=== PATIENT | female | born 1980 | race Two or more races ===

== ENCOUNTER 2024-07-08 09:08 | Inpatient (IN) | payer OTHER ==
[2024-07-08] VITALS (17 sets, daily range): BP systolic 112–135; BP diastolic 62–80; PULSE 67–93; RESP 17–24; TEMP 97.5–99.2; O2SAT 97–99
[~2024-07-08] VITALS: Ht 157.5 cm; Wt 66.6 kg
[2024-07-08 09:38] LABS: Urine Bacteria None Seen /hpf (None Seen)
[2024-07-08 09:50] LABS: Potassium 3.6 mmol/L (3.5-5.1); Sodium 140 mmol/L (136-145)
[2024-07-08 09:51] LABS: Anion Gap 7 (5-15); Carbon Dioxide 23 mmol/L (20-31)
[2024-07-08 09:52] LABS: Calcium 9.8 mg/dL (8.7-10.4)
[2024-07-08 09:57] LABS: BUN/Creatinine Ratio 13.2 (10.0-20.0); Blood Urea Nitrogen 10 mg/dL (9-23); Eosinophils # (auto) 0.3 10 ^3/uL (0-0.8); Lymphocytes # (auto) 1.5 10 ^3/uL (0.4-5.4); Monocytes # (auto) 0.3 10 ^3/uL (0-1.3); Monocytes % (auto) 7.4 % (0.0-12.0)
[2024-07-08 10:02] LABS: Basophils # (auto) 0.1 10 ^3/uL (0-0.2); Basophils % (auto) 1.5 % (0.0-2.0); Eosinophils % (auto) 6.2 % (0.0-7.0); Hematocrit 25.2 % (36.0-46.0); Mean Corpuscular Hemoglobin 13.6 pg (28.0-32.0); Mean Corpuscular Hgb Conc. 25.4 g/dL (32.0-36.0); Mean Corpuscular Volume 53.6 fL (80.0-100.0); Neutrophils # (auto) 2.4 10 ^3/uL (1.6-8.6); Neutrophils % (auto) 52.9 % (37.0-80.0); Nucleated Red Blood Cells % 0.2 %; Platelet Count (auto) 437 10^3/uL (140-450); Red Cell Distribution Width 24.4 % (11.8-14.3); White Blood Cell 4.5 10^3/uL (4.4-10.8)
[2024-07-08 10:04] LABS: Hemoglobin 6.4 g/dL (12.2-16.2)
[2024-07-08 10:07] LABS: Chloride 110 mmol/L (98-107); Glucose 118 mg/dL (74-106)
[2024-07-08 10:14] LABS: Urine Blood Negative /uL (Negative); Urine Clarity Clear (Clear); Urine Color Light-Yellow (Yellow); Urine Mucus FEW (None Seen); Urine Protein, UAD Negative (Negative); Urine Specific Gravity 1.019 (1.001-1.035); Urine Urobilinogen Normal (Negative); Urine WBC 1 /hpf (0 - 5)
--- NOTE | 2024-07-08 10:55 | ED.PDOC ---
History of Present Illness HPI Comments This is a 44-year-old female who comes in with chief complaint of dizziness and weakness over the past one year. The patient states that she saw her doctor last month and had blood drawn approximately one week ago. She states that she was called today and told that she may be anemic and she needs to come to the emergency department's for evaluation. The patient denies any heavy menstruation. The patient also denies any chest pain or fever. The patient was complaining of some shortness for breath upon ambulation. Chief Complaint: Abnormal LAB's Time Seen by MD: 10:11 Primary Care Provider: YOVANA Reviewed Notes: Nurses Notes, Medications, Allergies (No allergies to medications) Allergies: Coded Allergies: NO KNOWN ALLERGIES (Unverified , 07/08/24) Information Source: Patient Mode of Arrival: Ambulatory Severity: Moderate Timing: Months Duration: Since onset Prehospital treatment: None Associated signs and symptoms Generalized weakness with shortness for breath on ambulation and dizziness Past Medical History PAST MEDICAL HISTORY: Anemia Surgical History: BTL, MULTIM[employer]IA SPECIALIST History: No Pertinent MULTIM[employer]IA SPECIALIST History Family History Family History: Family hx of HTN Family History (Other): Chronic anemia Social History Smoker: Non-Smoker Alcohol: Denies ETOH Use Drugs: Denies Drug Use Lives In: Home Constitutional: reports: weakness; denies: chills, diaphoresis, fatigue, fever, malaise, sweats, others EENTM: denies: blurred vision, double vision, ear bleeding, ear discharge, ear drainage, ear pain, ear ringing, eye pain, eye redness, hearing loss, mouth pain, mouth swelling, nasal discharge, nose bleeding, nose congestion, nose pa in, photophobia, tearing, throat pain, throat swelling, voice changes, others Respiratory: reports: shortness of breath; denies: cough, hemoptysis, orthopnea, SOB at rest, SOB with excertion, stridor, wheezing, others Cardiovascular: denies: chest pain, dizzy spells, diaphoresis, Dyspnea on exertion, edema, irregular heart beat, left arm pain, lightheadedness, palpitations, PND, syncope, others Gastrointestinal: denies: abdomen distended, abdominal pain, blood streaked bowels, constipated, diarrhea, dysphagia, difficulty swallowing, hematemesis, m july, nausea, poor appetite, poor fluid intake, rectal bleeding, rectal pain, vomiting, others Genitourinary: denies: abnormal vagina bleeding, burning, dyspareunia, dysuria, flank pain, frequency, hematuria, incontinence, pain, , vagina discharge, urgency, others Neurological: reports: dizziness; denies: fainting, headache, left sided numbness, left sided weakness, numbness, paresthesia, pre-existing deficit, right sided numbness, right sided weakness, seizure, speech problems, tingling, tremors, weakness, others Musculoskeletal: denies: back pain, gout, joint pain, joint swelling, muscle pain, muscle stiffness, neck pain, others Integumetry: denies: bruises, change in color, change in hair/nails, dryness, laceration, lesions, lumps, rash, wounds, others Allergic/Immunocompromised: denies: Difficulty Healing, Frequent Infections, Hives, Itching, others Hematologic/Lymphatic: denies: anemia, blood clots, easy bleeding, easy bruising, swollen glands, others Endocrine: denies: excessive hunger, excessive sweating, excessive thirst, excessive urination, flushing, intolerance to cold, intolerance to heat, unexplained weight gain, unexplained weight loss, others Psychiatric: denies: anxiety, bipolar disorder, depression, hopeless, panic disorder, schizophrenia, sleepless, suicidal, others Physical Exam General Appearance: Moderate Distress HEENT: Pale Conjuntivae (L), Pale Conjuntivae (R), Pharynx Normal, TMs Normal Neck: Full Range of Motion, Non-Tender, Normal, Normal Inspection Respiratory: Chest Non-Tender, Lungs Clear, No Accessory Muscle Use, No Respiratory Distress, Normal Breath Sounds Cardiovascular: No Edema, No JVD, No Murmur, No Gallop, Normal Peripheral Pulses, Regular Rate/Rhythm Breast Exam: Deferred Gastrointestinal: No Organomegaly, Non Tender, No Pulsatile Mass, Normal Bowel Sounds, Soft Genitalia: Deferred Pelvic: Deferred Rectal: Deferred Extremities: No calf tenderness, Normal capillary refill, Normal inspection, Normal range of motion, Non-tender, No pedal edema Musculoskeletal : Apperance: Normal Neurologic: tubular splitting machine tender II-XII nml as Tested, Motor Weakness, Normal Affect, Normal Mood, No Sensory Deficits Cerebellar Function: Normal Reflexes: Normal Skin: Dry, Pallor, Warm Lymphatic: No Adenopathy Was a procedure done? Was a procedure done?: No Differential Dx Considerations may include: Anemia, electrolyte imbalance, generalized weakness X-Ray, Labs, Meds, VS Vital Signs Date Time Temp Pulse Resp B/P (MAP) Pulse Ox O2 Delivery O2 Flow Rate FiO2 07/08/24 12:06 98.6 81 18 121/79 98.6 07/08/24 10:23 89 17 97 Room Air* 0 21 07/08/24 10:23 89 17 118/70 (86) 97 07/08/24 09:20 98.9 99 18 151/78 (102) 100 Lab Test 07/08/24 09:28 07/08/24 09:20 Range/Units White Blood Count 4.5 4.4-10.8 10^3/uL Red Blood Count 4.70 4.0-5.20 10^6/uL Hemoglobin 6.4 *L 12.2-16.2 g/dL Hematocrit 25.2 L 36.0-46.0 % Mean Corpuscular Volume 53.6 L 80.0-100.0 fL Mean Corpuscular Hemoglobin 13.6 L 28.0-32.0 pg Mean Corpuscular Hemoglobin Concent 25.4 L 32.0-36.0 g/dL Red Cell Distribution Width 24.4 H 11.8-14.3 % Platelet Count 437 140-450 10^3/uL Mean Platelet Volume 8.2 6.9-10.8 fL Neutrophils (%) (Auto) 52.9 37.0-80.0 % Lymphocytes (%) (Auto) 32.0 10.0-50.0 % Monocytes (%) (Auto) 7.4 0.0-12.0 % Eosinophils (%) (Auto) 6.2 0.0-7.0 % Basophils (%) (Auto) 1.5 0.0-2.0 % Neutrophils # (Auto) 2.4 1.6-8.6 10 ^3/uL Lymphocytes # (Auto) 1.5 0.4-5.4 10 ^3/uL Monocytes # (Auto) 0.3 0-1.3 10 ^3/uL Eosinophils # (Auto) 0.3 0-0.8 10 ^3/uL Basophils # (Auto) 0.1 0-0.2 10 ^3/uL Nucleated Red Blood Cells 0.2 % Platelet Estimate Adequate Hypochromasia (manual) Marked Anisocytosis (manual) Moderate Microcytosis Marked Tear Drop Cells Few Ovalocytes Few Sodium Level 140 136-145 mmol/L Potassium Level 3.6 3.5-5.1 mmol/L Chloride Level 110 H 98-107 mmol/L Carbon Dioxide Level 23 20-31 mmol/L Anion Gap 7 5-15 Blood Urea Nitrogen 10 9-23 mg/dL Creatinine 0.76 0.550-1.02 mg/dL Glomerular Filtration Rate Calc 100 >90 mL/min BUN/Creatinine Ratio 13.2 10.0-20.0 Serum Glucose 118 H 74-106 mg/dL Calcium Level 9.8 8.7-10.4 mg/dL Urine Color Light-yellow Yellow Urine Clarity Clear Clear Urine pH 7.0 5.0-9.0 Urine Specific [place] 1.019 1.001-1.035 Urine Protein Negative Negative Urine Ketones Negative Negative Urine Blood Negative Negative /uL Urine Nitrite Negative Negative Urine Bilirubin Negative Negative Urine Urobilinogen Normal Negative mg/dL Urine Leukocyte Esterase Negative Negative /uL Urine RBC 1 0 - 4 /hpf Urine WBC 1 0 - 5 /hpf Urine Squamous Epithelial Cells Few <5 /hpf Urine Bacteria None seen None Seen /hpf Urine Mucus Few None Seen Urine Glucose Normal Normal mg/dL The patient's CBC shows anemia with a hemoglobin of 6.4 and hematocrit of 25.2 The platelets are within normal limits The chemistry panel is within normal limits The urine test is negative We are typed and screen the patient. The patient will be transfused with 2 units of packed red blood cells. At this time, the patient was being admitted to the hospitalist Discussed the findings with the patient and she still remains symptomatic Images Reviewed?: Images reviewed and evaluated by me Time of 1ST Reevaluation: 10:55 Reevaluation 1ST: Unchanged Patient Education/Counseling: Diagnosis, Treatment, Prognosis Family Education/Counseling: No Family Present Departure 1 Departure Time of Disposition: 12:42 Impression: Primary Impression: Near syncope Additional Impressions: Severe anemia Generalized weakness Disposition: 09 ADMITTED INPATIENT Admit to: Med Surg Condition: Fair Critical Care Note Critical Care Time?: No Stability Stability form required: Yes Unstable for transfer: ED Physician Assesment (Clinical assesment) Heart Score Heart Score: Heart Score Response (Comments) Value History N/A 0 EKG N/A 0 Age N/A 0 Risk Factors N/A 0 Troponin N/A 0 Total 0 CHIRAG LANDIN MD Jul 08, 2024 10:55
[2024-07-08 11:41] LABS: Platelet Estimate Adequate
[2024-07-08 11:42] LABS: Anisocytosis Moderate; Hypochromia Marked; Ovalocytes FEW; Tear Drop Cells FEW
[2024-07-08] MEDS ORDERED: DOCUSATE SOD 100 MG CAP PO PRN (13:45)
[2024-07-08] MEDS ORDERED: ONDANSETRON HCL 4 MG/2 ML VIAL IV PRN (13:45)
[2024-07-08] MEDS ORDERED: HYDROcodone-ACET 5/325MG TAB PO PRN (13:45)
--- NOTE | 2024-07-08 13:58 | DVHHP2 ---
History of Present Illness Reason for Visit: Abnormal Labs History of Present Illness Oriana Looney is a 44-year-old female with no significant past medical history who was sent to the ER by her primary care provider for severe anemia. Patient states that for the past year she has been feeling more tired and was getting short of breath when walking up her stairs. She states she went to her primary care provider about 1 month ago for a routine check up, completed her labs last week, and was then called by her primary and told to go to the ER because she may require a blood transfusion. Patient denies any S/S of GI bleed. Denies any vomiting, diarrhea, dark stool, or blood in stool. States her menstrual cycle is normal lasting 3-4 days. On assessment patient was receiving her first unit of PRBC. Past Surgical History: (x 3), Tubal Ligation Family History: None Smoke: No ALCOHOL: none Drugs: None Lives: with Family Domestic Violence: Neg Review of Systems Constitutional: Yes: Malaise; No: Fever, Chills, Sweats, Weakness, Other Eyes: No: Pain, Vision change, Conjunctivae inflammation, Eyelid inflammation, Other, Redness ENT: No: Ear pain, Ear discharge, Nose pain, Nose discharge, Nose congestion, M outh pain, Mouth swelling, Throat pain, Throat swelling, Other Respiratory: SOB with excertion; No: Cough, Dry, Shortness of breath, Wheezing, Hemoptysis, Pleuritic Pain, Sputum, Wheezing, Other Cardiovascular: No: Chest Pain, Palpitations, Orthopnea, Paroxysmal Noc. Dyspnea, Edema, Lt Headedness, Other Gastrointestinal: No: Nausea, Vomiting, Abdominal Pain, Diarrhea, Constipation, Melena, Hematochezia, Other Genitourinary: No Dysuria, No Frequency, No Incontinence, No Hematuria, No Retention, No Other Musculoskeletal: No: other, neck pain, shoulder pain, arm pain, back pain, hand pain, leg pain, foot pain Skin: No: Rash, Lesions, Jaundice, Bruising, Other Neurological: No: Weakness, Numbness, Incoordination, Change in speech, Confu tito, Seizures, Other Allergies: Coded Allergies: NO KNOWN ALLERGIES (Unverified , 07/08/24) Exam Vital Signs Vital Signs Date Time Temp Pulse Resp B/P (MAP) Pulse Ox O2 Delivery O2 Flow Rate FiO2 12/18/24 13:00 98.6 83 19 134/77 98.6 07/08/24 12:00 99 07/08/24 10:23 Room Air* 0 21 General Appearance: Alert, Oriented X3, Cooperative, mild distress HEENT: Atraumatic, PERRLA Respiratory: Clear to auscultation, Normal air movement Cardiovascular: Regular rate, Normal S1, Normal S2, No murmurs Abdominal: Normal bowel sounds, Soft, No tenderness Extremities: No clubbing, No cyanosis, No edema, Normal pulses Skin: No rashes, No breakdown, No significant lesion Neuro: Normal gait, Normal speech, Strength at 5/5 X4 ext Psych/Mental Status: Mental status NL, Mood NL Labs/Xrays Labs Test 07/08/24 09:28 07/08/24 09:20 Range/Units White Blood Count 4.5 4.4-10.8 10^3/uL Red Blood Count 4.70 4.0-5.20 10^6/uL Hemoglobin 6.4 *L 12.2-16.2 g/dL Hematocrit 25.2 L 36.0-46.0 % Mean Corpuscular Volume 53.6 L 80.0-100.0 fL Mean Corpuscular Hemoglobin 13.6 L 28.0-32.0 pg Mean Corpuscular Hemoglobin Concent 25.4 L 32.0-36.0 g/dL Red Cell Distribution Width 24.4 H 11.8-14.3 % Platelet Count 437 140-450 10^3/uL Mean Platelet Volume 8.2 6.9-10.8 fL Neutrophils (%) (Auto) 52.9 37.0-80.0 % Lymphocytes (%) (Auto) 32.0 10.0-50.0 % Monocytes (%) (Auto) 7.4 0.0-12.0 % Eosinophils (%) (Auto) 6.2 0.0-7.0 % Basophils (%) (Auto) 1.5 0.0-2.0 % Neutrophils # (Auto) 2.4 1.6-8.6 10 ^3/uL Lymphocytes # (Auto) 1.5 0.4-5.4 10 ^3/uL Monocytes # (Auto) 0.3 0-1.3 10 ^3/uL Eosinophils # (Auto) 0.3 0-0.8 10 ^3/uL Basophils # (Auto) 0.1 0-0.2 10 ^3/uL Nucleated Red Blood Cells 0.2 % Platelet Estimate Adequate Hypochromasia (manual) Marked Anisocytosis (manual) Moderate Microcytosis Marked Tear Drop Cells Few Ovalocytes Few Sodium Level 140 136-145 mmol/L Potassium Level 3.6 3.5-5.1 mmol/L Chloride Level 110 H 98-107 mmol/L Carbon Dioxide Level 23 20-31 mmol/L Anion Gap 7 5-15 Blood Urea Nitrogen 10 9-23 mg/dL Creatinine 0.76 0.550-1.02 mg/dL Glomerular Filtration Rate Calc 100 >90 mL/min BUN/Creatinine Ratio 13.2 10.0-20.0 Serum Glucose 118 H 74-106 mg/dL Calcium Level 9.8 8.7-10.4 mg/dL Urine Color Light-yellow Yellow Urine Clarity Clear Clear Urine pH 7.0 5.0-9.0 Urine Specific [place] 1.019 1.001-1.035 Urine Protein Negative Negative Urine Ketones Negative Negative Urine Blood Negative Negative /uL Urine Nitrite Negative Negative Urine Bilirubin Negative Negative Urine Urobilinogen Normal Negative mg/dL Urine Leukocyte Esterase Negative Negative /uL Urine RBC 1 0 - 4 /hpf Urine WBC 1 0 - 5 /hpf Urine Squamous Epithelial Cells Few <5 /hpf Urine Bacteria None seen None Seen /hpf Urine Mucus Few None Seen Urine Glucose Normal Normal mg/dL Assessment/Plan Assessment/Plan Assessment: Severe anemia, Possible Thalassemia, Possible iron deficiency anemia, Plan: Admit to Med-Surg, Transfuse 2 units PRBC, Saez stain, Manage/Monitor Hbg closely, Consider hematology consult, Plan discussed with: Patient Date of Service: Jul 08, 2024 Billing Provider: JORGE GRAF Common Visit Codes: [id number] INP/OBS CARE (MOD) JORGE GRAF Jul 08, 2024 13:58
[2024-07-08] MEDS: SODIUM CHLOR 0.9% PF (SALINE LOCK) 10ML VIAL/SYR IV SCH (14:02)
[2024-07-08 19:03] LABS: Hemoglobin 9.5 g/dL (12.2-16.2)
[2024-07-08 19:05] LABS: Hematocrit 31.6 % (36.0-46.0)
[2024-07-08] MEDS: ACETAMINOPHEN 325 MG TAB PO PRN (23:15)
[2024-07-09] VITALS (8 sets, daily range): BP systolic 115–133; BP diastolic 60–72; PULSE 66–83; RESP 14–20; TEMP 97.4–98.3; O2SAT 91–99
[2024-07-09 06:52] LABS: Alanine Aminotransferase 16 U/L (7-40); Albumin 4.1 g/dL (3.2-4.8); Alkaline Phosphatase 93 U/L (46-116); Anion Gap 7 (5-15); Aspartate Aminotransferase 16 U/L (13-40); BUN/Creatinine Ratio 15.5 (10.0-20.0); Blood Urea Nitrogen 9 mg/dL (9-23); Calcium 9.5 mg/dL (8.7-10.4); Carbon Dioxide 22 mmol/L (20-31); Glucose 97 mg/dL (74-106); Sodium 140 mmol/L (136-145)
[2024-07-09 06:53] LABS: Bilirubin, Total 1.2 mg/dL (0.2-1.0); Chloride 111 mmol/L (98-107)
[2024-07-09 07:07] LABS: Basophils # (auto) 0.1 10 ^3/uL (0-0.2); Eosinophils # (auto) 0.4 10 ^3/uL (0-0.8); Hemoglobin 9.2 g/dL (12.2-16.2); Monocytes # (auto) 0.5 10 ^3/uL (0-1.3); White Blood Cell 5.5 10^3/uL (4.4-10.8)
[2024-07-09 07:10] LABS: Basophils % (auto) 1.2 % (0.0-2.0); Eosinophils % (auto) 8.1 % (0.0-7.0); Hematocrit 29.7 % (36.0-46.0); Lymphocytes # (auto) 1.5 10 ^3/uL (0.4-5.4); Lymphocytes % (auto) 27.4 % (10.0-50.0); Mean Corpuscular Hemoglobin 19.4 pg (28.0-32.0); Mean Corpuscular Hgb Conc. 31.1 g/dL (32.0-36.0); Mean Corpuscular Volume 62.4 fL (80.0-100.0); Monocytes % (auto) 9.2 % (0.0-12.0); Neutrophils % (auto) 54.1 % (37.0-80.0); Nucleated Red Blood Cells % 0.2 %; Platelet Count (auto) 345 10^3/uL (140-450); Red Blood Cells 4.76 10^6/uL (4.0-5.20)
[2024-07-09 07:12] LABS: Red Cell Distribution Width 35.4 % (11.8-14.3)
[2024-07-09 07:43] LABS: % Iron Saturation 8.6 % (15-50)
[2024-07-09 07:47] LABS: Ferritin 5.5 ng/mL (10-291); Folate (Folic Acid) 13.86 ng/mL (>5.38)
[2024-07-09 08:21] LABS: Anisocytosis Moderate; Hypochromia Moderate
[2024-07-09 08:22] LABS: Ovalocytes FEW; Platelet Estimate Adequate; Tear Drop Cells FEW
--- NOTE | 2024-07-09 11:46 | DVH ---
INDICATION: anemia TECHNIQUE: Multiple real-time grayscale transabdominal sonographic images along with color and duplex Doppler of the uterus and ovaries were obtained. COMPARISON: None FINDINGS: The uterus measures 8.5 x 5.2 x 4.7 cm. The endometrial stripe measures 0.6 cm. The right ovary measures 3.6 x 1.8 x 2.0 cm. The left ovary measures 4.2 x 1.8 x 2.6 cm. Subsequent color and duplex Doppler interrogation of the ovaries demonstrated symmetric vascular flow to both ovaries, though this does not exclude the possibility of torsion due to the dual blood suppl y. IMPRESSION: 1. Grossly unremarkable pelvic ultrasound.
[2024-07-09] MEDS: FERROUS SULFATE 325mg EC TAB PO ONE (12:36)
--- NOTE | 2024-07-09 13:03 | DVHPNRES ---
Progress Note Date Seen: Jul 09, 2024 Resident Creating Document: NILA ESCALONA RESIDENT Medical Necessity Reason Pt with a Central, PICC or Fol: No Subjective Review of Systems patent is 44 years old female with no significant past medical history came with the references of the primary care physician for blood transfusion. As per patient patient went to see her doctor yesterday for lab reports and Ask the patient to go to the ER for blood transfusion. Patient reported having feeling tired and fatigue that has been going on for last 1 year. Patient also reports some palpitation and shortness of breaths especially when she tries to go off his chair. Patient also reported having dark stool six-month before. Patient denied any bleeding, fever, night sweat or weight loss or loss of appetite, acute joint pain or swelling constipation or diarrhea, change in vision. Patient reported that her family has a history of anemia due to heavy menstrual or menorrhagia. Initial lab workup revealed hemoglobin 6.4 and after 2 units of blood transfusion hemoglobin was 9.2. Other lab revealed hematocrit 25.2 at the beginning, MCV 53.6, MCH 13.6, MCHC 25.4, RDW 24.4, hypochromasia Zeeshan, anisocytosis moderate, microcytosis Zeeshan. PMH- No significant past medical history PSH- 3 C section, bilateral tubal ligation Allergy- NKDA Personal History/ Social History- patient did not smoking/alcoholism/ drug abuse, lives at home with the and other kids. Patient was seen today at the bedside. Patient reports Feeling tiredhortness of breath or cough or palpitation Respiratory- denies cough or short of breath or wheezing Gastrointestinal- denies any rectal bleeding, nausea or vomiting Musculoskeletal-denies acute joint swelling or tenderness or redness Neurological- denies acute dysarthria, dysphagia, change in vision Psychiatry- denies depression or SI or HI Skin- denies acute rash or purpura Patient was seen today for clinical evaluation. Labs and chart reviewed. Patient status post 2 units blood transfusion. Tolerated well. Ordered ultrasound of the pelvis for further evaluation and care which revealed-Grossly unremarkable pelvic ultrasound. Patient was found to have iron-deficiency with low iron and ferritin level. Ordered ferrous sulfate 320 mg p.o. daily. Fecal occult blood test negative. Objective vital signs Vital Sign Date Time Temp Pulse Resp B/P (MAP) Pulse Ox O2 Delivery O2 Flow Rate FiO2 07/09/24 09:00 97.4 69 16 122/68 (86) 98 97.4 07/09/24 08:00 Room Air* 0 21 Total Intake and Output 07/08/24 07/08/24 07/09/24 15:00 23:00 07:00 Intake Total 1200 ml 200 ml Output Total 0 ml Balance 1200 ml 200 ml medications Current Medications Medications Dose Ordered Sig/Dawit Route Start Time Stop Time Status Last Admin Dose Admin Sodium Chloride 10 ml Q8HR IV 07/08/24 14:00 07/09/24 05:32 10 ML Acetaminophen/ Hydrocodone Bitart 1 tab Q4HP PRN PO 07/08/24 13:45 Ondansetron HCl 4 mg Q4HP PRN IV 07/08/24 13:45 Docusate Sodium 100 mg BIDPRN PRN PO 07/08/24 13:45 Acetaminophen 650 mg Q6HP PRN PO 07/08/24 13:45 07/08/24 23:15 650 MG Ferrous Sulfate 325 mg BIDWM PO 07/09/24 18:00 Famotidine 20 mg Q12HR PO 07/09/24 22:00 Examination General examination- awake, alert, oriented HEENT- PEERLA, no acute nasal discharge Cardiovascular- S1-S2 audible, rate and rhythm regular, no murmur Respiratory- CTAB, no wheeze or rhonchi Gastrointestinal-nontender, bowel sound+. Nondistended Musculoskeletal-no acute joint swelling or tenderness or redness# Lower extremity- no leg edema Neurological- cranial nerves intact, no acute dysarthria or dysphagia Psychiatry- denies depression or SI or HI Skin- no acute rash or purpura laboratory and microbiology Laboratory Tests 07/09/24 05:46 Test 07/09/24 05:46 Range/Units Serum Glucose 97 74-106 mg/dL Problem List/Assessment/Plan Problem List/Assessment/Plan # severe anemia likely due to microcytic hypochromic anemia - status post 2 units blood transfusion - ordered iron panel, ferritin, stool occult blood test, TSH, vitamin B12, folic acid level for further evaluation and care # tiredness and fatigue likely due to severe anemia Goals of care/advance care planning; FULL CODE; discussed with the patient >15 minutes PUD prophylaxis: famotidine DVT prophylaxis: patient ambulating Plan discussed with Dr. Peña, nursing staff, patient Total time spent on patient evaluation, chart review, assessment and plan, discussion discussion >30 minutes Plan discussed with: Patient Plan discussed with: Patient, Other (RN) My Orders My Orders Orders - NILA ESCALONA Procedure Category Date Status Time Urine ED NURSING 07/09/24 Transmitted Ferrous Sulfate Tablet PHA 07/09/24 In Process 18:00 Famotidine Tablet PHA 07/09/24 In Process (Pepcid Tablet) 22:00 Pelvic US 07/09/24 Resulted 10:05 CC Plasma Assessment Blood Product Administration S: [id number] Date of Service: Jul 09, 2024 Billing Provider: RUSLAN PEÑA MD Common Visit Codes: [id number] INP/OBS CARE(HIGH) Secondary Visit Codes: [id number] CARE PLAN 30 MINUTES NILA ESCALONA Jul 09, 2024 13:03 RUSLAN PEÑA MD Jul 09, 2024 20:34
[2024-07-09] MEDS: FERROUS SULFATE 325mg EC TAB PO SCH (17:41)
[2024-07-09] MEDS: FAMOTIDINE 20 MG TAB PO SCH (21:15)
[2024-07-10 01:00] VITALS: BP 126/66; PULSE 58; RESP 18; TEMP 98; O2SAT 100
[2024-07-10 05:00] VITALS: BP 124/73; PULSE 62; RESP 18; TEMP 98; O2SAT 98
[2024-07-10 06:43] LABS: Basophils # (auto) 0 10 ^3/uL (0-0.2); Eosinophils # (auto) 0.4 10 ^3/uL (0-0.8); Hemoglobin 9.7 g/dL (12.2-16.2); Monocytes # (auto) 0.5 10 ^3/uL (0-1.3)
[2024-07-10 06:47] LABS: Basophils % (auto) 0.8 % (0.0-2.0); Eosinophils % (auto) 7.2 % (0.0-7.0); Hematocrit 31.9 % (36.0-46.0); Lymphocytes # (auto) 1.8 10 ^3/uL (0.4-5.4); Lymphocytes % (auto) 31.4 % (10.0-50.0); Mean Corpuscular Hemoglobin 18.9 pg (28.0-32.0); Mean Corpuscular Hgb Conc. 30.4 g/dL (32.0-36.0); Mean Corpuscular Volume 62.1 fL (80.0-100.0); Monocytes % (auto) 8.8 % (0.0-12.0); Neutrophils % (auto) 51.8 % (37.0-80.0); Nucleated Red Blood Cells % 0.1 %; Platelet Count (auto) 357 10^3/uL (140-450); Red Blood Cells 5.13 10^6/uL (4.0-5.20); Red Cell Distribution Width 36.7 % (11.8-14.3); White Blood Cell 5.8 10^3/uL (4.4-10.8)
[2024-07-10 06:50] LABS: Calcium 9.8 mg/dL (8.7-10.4); Potassium 4.1 mmol/L (3.5-5.1); Sodium 139 mmol/L (136-145)
[2024-07-10 06:51] LABS: Anion Gap 7 (5-15); Carbon Dioxide 24 mmol/L (20-31)
[2024-07-10 06:54] LABS: Chloride 108 mmol/L (98-107)
[2024-07-10 06:57] LABS: Blood Urea Nitrogen 14 mg/dL (9-23); Glucose 104 mg/dL (74-106)
[2024-07-10 08:00] VITALS: RESP 16; O2SAT 98
[2024-07-10 10:05] VITALS: BP 126/72; PULSE 74; RESP 16; TEMP 97.6; O2SAT 100
[2024-07-10 10:51] VITALS: BP 126/72; PULSE 74; RESP 16; TEMP 97.6; O2SAT 100
[2024-07-10] MEDS ORDERED: FER325T PO (11:39)
--- NOTE | 2024-07-10 12:00 | DVHDSRES ---
Discharge Summary Date of Admission Resident Creating Document: NILA ESCALONA RESIDENT Jul 08, 2024 at 13:44 Date of Discharge: Jul 10, 2024 Admitting Diagnosis Severe anemia Labs/Diagnostic Data: Laboratory Results Test 07/10/24 05:12 07/09/24 11:00 07/09/24 05:46 07/08/24 09:20 White Blood Count 5.8 10^3/uL (4.4-10.8) Red Blood Count 5.13 10^6/uL (4.0-5.20) Hemoglobin 9.7 g/dL (12.2-16.2) Hematocrit 31.9 % (36.0-46.0) Mean Corpuscular Volume 62.1 fL (80.0-100.0) Mean Corpuscular Hemoglobin 18.9 pg (28.0-32.0) Mean Corpuscular Hemoglobin Concent 30.4 g/dL (32.0-36.0) Red Cell Distribution Width 36.7 % (11.8-14.3) Platelet Count 357 10^3/uL (140-450) Mean Platelet Volume 8.3 fL (6.9-10.8) Neutrophils (%) (Auto) 51.8 % (37.0-80.0) Lymphocytes (%) (Auto) 31.4 % (10.0-50.0) Monocytes (%) (Auto) 8.8 % (0.0-12.0) Eosinophils (%) (Auto) 7.2 % (0.0-7.0) Basophils (%) (Auto) 0.8 % (0.0-2.0) Neutrophils # (Auto) 3.0 10 ^3/uL (1.6-8.6) Lymphocytes # (Auto) 1.8 10 ^3/uL (0.4-5.4) Monocytes # (Auto) 0.5 10 ^3/uL (0-1.3) Eosinophils # (Auto) 0.4 10 ^3/uL (0-0.8) Basophils # (Auto) 0 10 ^3/uL (0-0.2) Nucleated Red Blood Cells 0.1 % Sodium Level 139 mmol/L (136-145) Potassium Level 4.1 mmol/L (3.5-5.1) Chloride Level 108 mmol/L (98-107) Carbon Dioxide Level 24 mmol/L (20-31) Anion Gap 7 (5-15) Blood Urea Nitrogen 14 mg/dL (9-23) Creatinine 0.61 mg/dL (0.550-1.02) Glomerular Filtration Rate Calc 114 mL/min (>90) BUN/Creatinine Ratio 23.0 (10.0-20.0) Serum Glucose 104 mg/dL (74-106) Calcium Level 9.8 mg/dL (8.7-10.4) Stool Occult Blood Negative (Negative) Stool Occult Blood Sample #3 (Negative) Platelet Estimate Adequate Hypochromasia (manual) Moderate Anisocytosis (manual) Moderate Microcytosis Moderate Tear Drop Cells Few Ovalocytes Few Schistocytes Few Hemoglobin A1c 5.2 % A1C (<5.7) Magnesium Level 2.2 mg/dL (1.6-2.6) Iron Level 33 ug/dL (50-170) Total Iron Binding Capacity 385 ug/dL (250-425) Percent Iron Saturation 8.6 % (15-50) Ferritin 5.5 ng/mL (10-291) Total Bilirubin 1.2 mg/dL (0.2-1.0) Aspartate Amino Transferase (AST) 16 U/L (13-40) Alanine Aminotransferase (ALT) 16 U/L (7-40) Alkaline Phosphatase 93 U/L (46-116) Total Protein 7.0 g/dL (5.7-8.2) Albumin 4.1 g/dL (3.2-4.8) Vitamin B12 Level 350 pg/mL (211-911) Folic Acid 13.86 ng/mL (>5.38) Thyroid Stimulating Hormone (TSH) 1.19 uIU/mL (0.55-4.78) Urine Color Light-yellow (Yellow) Urine Clarity Clear (Clear) Urine pH 7.0 (5.0-9.0) Urine Specific [place] 1.019 (1.001-1.035) Urine Protein Negative (Negative) Urine Ketones Negative (Negative) Urine Blood Negative /uL (Negative) Urine Nitrite Negative (Negative) Urine Bilirubin Negative (Negative) Urine Urobilinogen Normal mg/dL (Negative) Urine Leukocyte Esterase Negative /uL (Negative) Urine RBC 1 /hpf (0 - 4) Urine WBC 1 /hpf (0 - 5) Urine Squamous Epithelial Cells Few /hpf (<5) Urine Bacteria None seen /hpf (None Seen) Urine Mucus Few (None Seen) Urine Glucose Normal mg/dL (Normal) Other Laboratory Tests 07/10/24 05:12 Brief Hx & Hospital Course: patent is 44 years old female with no significant past medical history came with the references of the primary care physician for blood transfusion. As per patient patient went to see her doctor yesterday for lab reports and Ask the patient to go to the ER for blood transfusion. Patient reported having feeling tired and fatigue that has been going on for last 1 year. Patient also reports some palpitation and shortness of breaths especially when she tries to go off his chair. Patient also reported having dark stool six-month before. Patient denied any bleeding, fever, night sweat or weight loss or loss of appetite, acute joint pain or swelling constipation or diarrhea, change in vision. Patient reported that her family has a history of anemia due to heavy menstrual or menorrhagia. Initial lab workup revealed hemoglobin 6.4 and after 2 units of blood transfusion hemoglobin was 9.2. Other lab revealed hematocrit 25.2 at the beginning, MCV 53.6, MCH 13.6, MCHC 25.4, RDW 24.4, hypochromasia Zeeshan, anisocytosis moderate, microcytosis Zeeshan. During hospitalization and had 2 units blood transfusion. Tolerated well. Ordered ultrasound of the pelvis for further evaluation and care which revealed- Grossly unremarkable pelvic ultrasound. Patient was found to have iron- deficiency with low iron and ferritin level. Stool occult breast tested negative. Patient is hemodynamically stable. Patient is being discharged home with a ferrous sulfate 325 mg p.o. daily. Patient was advised to follow up with the primary care physician for further evaluation and care. Patient's hemoglobin is stable on discharge hemoglobin 9.7. Patient's med was sent to the pharmacy electronically. PMH- No significant past medical history PSH- 3 C section, bilateral tubal ligation Allergy- NKDA Personal History/ Social History- patient did not smoking/alcoholism/ drug abuse, lives at home with the and other kids. Patient was seen today at the bedside. Patient reports Feeling tiredhortness of breath or cough or palpitation Respiratory- denies cough or short of breath or wheezing Gastrointestinal- denies any rectal bleeding, nausea or vomiting Musculoskeletal-denies acute joint swelling or tenderness or redness Neurological- denies acute dysarthria, dysphagia, change in vision Psychiatry- denies depression or SI or HI Skin- denies acute rash or purpura General examination- awake, alert, oriented HEENT- PEERLA, no acute nasal discharge Cardiovascular- S1-S2 audible, rate and rhythm regular, no murmur Respiratory- CTAB, no wheeze or rhonchi Gastrointestinal-nontender, bowel sound+. Nondistended Musculoskeletal-no acute joint swelling or tenderness or redness# Lower extremity- no leg edema Neurological- cranial nerves intact, no acute dysarthria or dysphagia Psychiatry- denies depression or SI or HI Skin- no acute rash or purpura Operations or Procedures General examination- awake, alert, oriented HEENT- PEERLA, no acute nasal discharge Cardiovascular- S1-S2 audible, rate and rhythm regular, no murmur Respiratory- CTAB, no wheeze or rhonchi Gastrointestinal-nontender, bowel sound+. Nondistended Musculoskeletal-no acute joint swelling or tenderness or redness# Lower extremity- no leg edema Neurological- cranial nerves intact, no acute dysarthria or dysphagia Psychiatry- denies depression or SI or HI Skin- no acute rash or purpura Condition at Discharge: Stable Final Diagnosis/Problems List Severe anemia likely due iron-deficiency anemia with microcytic hypochromic anemia Tiredness and fatigue likely due to severe anemia Discharge Disposition: Home Discharge Instruct/Medications Diet: Regular Activity: No Restrictions, As Tolerated Follow Up/Referral: Please follow up with your primary care physician in 1 week Medications: Ferrous sulfate 325 mg p.o. daily Discharge Statement: "Patient was advised to return to the ER or call 911 if any headaches, dizziness, shortness of breath, chest pain, abdominal pain, bleeding, fevers, or worsening of medical condition. Patient was counseled about treatment plan, medications, possible side effects, patientverbalized understanding. All questions were answered to the best of my ability. This discharge took greater then 30 minutes in planning, reviewing documentation, counseling the patient, and discussing with other team members." ASSESSMENT ASSESSMENT Assessment Severe anemia likely due iron-deficiency anemia with microcytic hypochromic anemia Tiredness and fatigue likely due to severe anemia Date of Service: Jul 10, 2024 Billing Provider: RUSLAN MEJIA MD Common Visit Codes: 35376-AGJ/OBS DISCH DAY >30min NILA ESCALONA Jul 10, 2024 12:00 RUSLAN MEJIA MD Jul 10, 2024 22:49
== END 2024-07-10 11:40 | disposition home or self-care (01) | DRG 663 ==
LOC: ER 09:15 → OVERFLOW 13:44 → WEST WING 23:00
PROVIDERS: ADMIT Internal Medicine Geriatric Medicine; ATTEND Internal Medicine Geriatric Medicine
PROC: 30233N1 Transfusion of Nonautologous Red Blood Cells into Peripheral Vein, Percutaneous Approach (ICD-10-PCS; principal; 2024-07-08)
DX: D50.9 Iron deficiency anemia, unspecified (principal); R55 Syncope and collapse; Z82.49 Family history of ischemic heart disease and other diseases of the circulatory system; Z98.51 Tubal ligation status
CPT/HCPCS: 36415; 76856; 80048; 80053; 81001; 82270; 82607; 82728; 82746; 83036; 83540; 83550; 83735; 84443; 85014; 85018; 85025; 86850; 86900; 86901; 86920; G0378